=== PATIENT | female | born 1965 | race Caucasian/White ===

== ENCOUNTER 2016-11-19 14:22 | Inpatient (IN) | payer OTHER ==
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
--- NOTE | ~2016-11-19 | EEG ---
Electroencephalogram [facility] [id number] [place]. [address] NAME: JOSE TSAI : 65 STATUS : ADM IN PAT#: [id number] AGE: 51 ADM/REG DATE : 11/19/16 MR#: [id number] REPORT SERV DATE: 11/23/16 DICTATED BY: TAY BRYANT DATE: 11/23/16 REPORT STATUS : Draft TRANSCRIBED BY: MODL DATE: 11/23/16 ELECTROENCEPHALOGRAPHY REPORT. INTERPRETING PHYSICIAN: Tay Bryant MD REASON FOR EEG: Possible seizure on 11/19/2016. The patient appeared restless throughout the study, possible delirium tremens. A 23-surface electrodes, 10-20 international placement was used. The patient was noted to be restless and uncooperative throughout the study. Photic stimulation was performed. Video monitoring was utilized. The background activity consisted of moderate voltage, relatively well-organized eight cycles per second located in the posterior head regions, large amount of low voltage. Beta- range activity was noted scattered throughout. This may represent a medication effect. No paroxysmal or epileptiform activity was seen during this study. No significant asymmetry of cerebral activity was present. Eye blinking artifact was symmetrical. No photoconvulsive response was seen during photic stimulation. The patient's bus monitor showed sinus tachycardia, heart rate of approximately 110 beats per minute. IMPRESSION: MILDLY ABNORMAL EEG, CHARACTERIZED BY PRESENCE OF DIFFUSE SLIGHT SLOWING OF CEREBRAL ACTIVITY. NO PAROXYSMAL OR EPILEPTIFORM ACTIVITY WAS SEEN DURING THE STUDY. NO SIGNIFICANT ASYMMETRY OF ACTIVITY WAS PRESENT. THE PATIENT APPEARED RESTLESS AND UNCOOPERATIVE. CLINICAL CORRELATION IS RECOMMENDED. ERIS/TARSHA Tay Bryant MD / [id number] CC: Trina Corado IV, DO
--- NOTE | ~2016-11-19 | IDS ---
Interim Discharge Summary [facility] [address] [place]. [address] NAME: JOSE TSAI : 65 STATUS : ADM IN PAT#: [id number] AGE: 51 ADM/REG DATE : 11/19/16 MR#: [id number] REPORT SERV DATE: 11/23/16 DICTATED BY: JASEN LINDSAY IV DATE: 11/23/16 REPORT STATUS : Draft TRANSCRIBED BY: TARSHA DATE: 11/23/16 ADMISSION DATE: 11/19/2016 DISCHARGE DATE: DATE OF TRANSFER TO THE FLOOR: 11/23/2016 ADMITTING DIAGNOSES: 1. Alcohol withdrawal, initially with seizure, then with delirium. 2. Thrombocytopenia, felt to be secondary to marrow toxicity from the alcohol, improving. 3. WPW. 4. Hypertension, on Lopressor for hypersensitive state. 5. Electrolyte abnormalities, improved. 6. Depression. 7. Avascular necrosis of hip with scheduled surgery due on next week, on hold. 8. Metabolic acidosis likely secondary to seizure. 9. Cigarette use. PROCEDURES: The patient underwent EEG on the 11/20/2016 failing to demonstrate any seizure activity. CONSULTANTS: Neurology who continued to follow the patient. CURRENT MEDICATIONS: Ativan 1 mg q.6 hours scheduled, Colace 100 mg twice a day, Cymbalta 30 mg daily, Habitrol patch 21 mg daily, Lopressor 25 mg twice a day, Protonix 40 mg daily, multivitamin daily, and then thiamine 200 mg orally daily. HOSPITAL COURSE: The patient was admitted to the intensive care unit from the ER for which she was found to be unresponsive in the pretesting area for her hip surgery for next week. She appeared to be postictal and had a bite grayson on her tongue consistent with a seizure, though none was witnessed. She was treated with Precedex, Ativan p.r.n., and thiamine for presumed alcohol withdrawal with a previous history of significant alcohol use though the patient denied significant current use. She developed a marked delirium over the ensuing days requiring very high-dose Ativan as well as Precedex. Precedex has been off for 24 hours and the patient is much more oriented on lower doses of Ativan. The Case Management has evaluated the patient and will offer inpatient alcohol with cessation treatment when medically cleared. She had no further seizure activity and was not on any medications other than Ativan. She had an EEG performed demonstrating no seizure focus and was followed by Neurology though felt that this was secondary to alcohol withdrawal. She had significant thrombocytopenia with no cause found other than possible marrow suppression which I have discussed with Hematology. This did slowly rise. She has remained off heparin products and is on pneumatic compression stockings for DVT prophylaxis. If they do not continue to improve or drop further, she may require bone marrow biopsy. She has a known history of WPW without any dysrhythmias. She was placed on Lopressor because of elevated blood pressures in the hypersympathetic state. She had multiple electrolyte abnormalities, which were corrected. She was on Habitrol patch throughout the hospitalization for her tobacco dependency. It was felt that on the 11/23/2016 she was stable for transfer to the floor. Interim Discharge Summary [address] [place]. [address] NAME: JOSE TSAI : 65 STATUS : ADM IN [facility]#: [id number] AGE: 51 ADM/REG DATE : 11/19/16 MR#: [id number] REPORT SERV DATE: 11/23/16 DICTATED BY: JASEN LINDSAY IV DATE: 11/23/16 REPORT STATUS : Draft TRANSCRIBED BY: TARSHA DATE: 11/23/16 We will ask family members to watch her though she is now quite cooperative. This transfer may not occur on the 11/24/2016 though she will need further observation. Hospital Service will be asked to assume primary care. GLORIA/TARSHA Jasen Lindsay IV, M.D. / [id number] CC: Trina Corado IV, DO
--- NOTE | ~2016-11-19 | DS ---
Discharge Summary [facility] [address] [place]. [address] NAME: JOSE TSAI : 65 STATUS : DIS IN PAT#: [id number] AGE: 51 ADM/REG DATE : 11/19/16 MR#: [id number] REPORT SERV DATE: 11/26/16 DICTATED BY: ETTA PETERS DATE: 11/25/16 REPORT STATUS : Draft TRANSCRIBED BY: MODL DATE: 11/25/16 ADMISSION DATE: 11/19/2016 DISCHARGE DATE: 11/25/2016 Date of transfer from Intensive Care Unit to our [facility] floor is 11/24/2016. I picked up the patient on 11/25/2016 and is discharging the patient on the very day. CONDITION ON DISCHARGE: Stable. DISPOSITION: Discharged to home. ADVICE ON DISCHARGE: For patient to follow up with Dr. Noble for avascular necrosis of the left hip possibly arthroplasty within the next few weeks as scheduled. The patient will also follow up with her PCP regarding her anxiety and depression within the next one to two weeks. The patient has been advised to stop smoking and stop alcohol use, which patient agrees to do. DIAGNOSES ON DISCHARGE: Include the followin. Alcohol withdrawal seizures - the patient is not placed on any AEDs at this time per Neurology. The patient underwent an EEG which did not show any definitive seizure activity, hence the one time seizure that she may have had is probably related to alcohol withdrawal. The patient has promised to stop drinking. 2. Thrombocytopenia secondary to marrow toxicity from alcohol. 3. History of Jpfjd-Ayexdpdgo-Jewzd syndrome, which is stable. 4. Hypertension - stable. 5. Electrolyte abnormalities, which have completely resolved. 6. History of depression for which patient is on Cymbalta. 7. Anxiety for which the patient will be taking Ativan 0.5 mg p.o. twice a day p.r.n. and I have dispensed #5 pills and advised her to follow up with PCP so she can get outpatient help for this. 8. Tobacco abuse - patient has been advised to stop, and she agrees. BRIEF HOSPITAL COURSE: Please refer to interim discharge summary dictated by Dr. Aleksander Lindsay. Essentially, this patient was admitted to ICU because of alcohol withdrawal and see active seizures. Neurology was consulted, and the patient underwent an EEG which did not show any definitive seizure activity. Hence, it was deemed that this one time "seizure" was probably secondary to alcohol withdrawal, and the patient has not been placed on any AEDs at this time. The patient is being sent home on the following medications at this time: 1. Lopressor 25 mg p.o. twice a day. 2. Cymbalta to be resumed, and the patient takes 30 mg of this every day. 3. Ibuprofen 200 mg p.o. daily p.r.n. for pain. 4. The patient will resume all her vitamin and mineral supplements, potassium 20 mEq once a day. 5. Ativan 0.5 mg p.o. b.i.d. p.r.n. for anxiety #5 only has been given to patient. Discharge Summary [address] [address] NAME: JOSE TSAI : 65 STATUS : DIS IN PAT#: [id number] AGE: 51 ADM/REG DATE : 11/19/16 MR#: [id number] REPORT SERV DATE: 11/26/16 DICTATED BY: ETTA PETERS DATE: 11/25/16 REPORT STATUS : Draft TRANSCRIBED BY: TARSHA DATE: 11/25/16 Recent lab reports on this patient shows a CBC that shows a WBC of 5.8, hemoglobin 11.9, hematocrit of 35.1, and platelet count of 74. Blood cultures have come back with no growth at four days. Electrolyte profile shows completely normal electrolyte profile, BUN and creatinine, normal magnesium. The patient also at one time, underwent a C. diff test as she had some diarrhea but this was negative for C. diff. The patient's chest x-ray has come back with no acute cardiopulmonary abnormality. Her glucose was normal all the while and her urinalysis showed no evidence of any infection. The patient also underwent other tests including lactate level that came back normal and hepatic function screen that came back with slightly elevated alkaline phosphatase at 118 and slightly elevated AST at 100. ALT was 48. Her drug screen showed less than 10 alcohol level. The patient also had a brain CT scan without contrast that showed no acute infarct or hemorrhage and mild atrophy and chronic white matter gliosis probably from alcohol use. Hence, the patient is being discharged home in stable condition with above advice, and I have spent about 40 minutes in coordinating discharge care of this patient including face-to face encounter and summarizing this discharge. LORETA/TARSHA Etta Peters M.D. / [id number] CC: Trina Boswell DO
[2016-11-19 13:53] LABS: BE (BASE EXCESS) -17.7 MEQ/L (0 +/- 2.5); CARBOXYHEMOGLOBIN 2.3 % (0-3); HCO3 (ACTUAL BICARBONATE) 8.6 MEQ/L (23-27); HEMOBLOGIN CONTENT 12.7 G/DL (12-16); INSTRUMENT SERIAL # 8087; METHEMOGLOBIN 0.2 % (0-3); PCO2 (CO2 TENSION) 23 MMHG (35-45); PO2 (O2 TENSION) 109 MMHG (79-93); SAMPLE Arterial; pH 7.19 (7.37-7.43)
[2016-11-19 13:54] LABS: OPERATOR ID 32214
[~2016-11-19 14:22] MED LIST: ADVIL PO; ASABAYER PO; C5; CYMBALTA30 PO; IBU400 PO; KLOR-CON M2020 MEQ PO; LIPOTRIAD1 CAP PO; MOTRIN IB200 MG PO; MULTIPLE VIT PO; PCET PO; VITAMIN D31000 UNIT PO
[2016-11-19] MEDS ORDERED: BION TEARS OPH ×2 (14:33→14:44)
[2016-11-19 14:36] LABS: BASOPHILS 0.6 %; BASOPHILS ABSOLUTE 0.03 10/3/uL (0.0-0.16); EOSINOPHILS 0.6 %; EOSINOPHILS ABSOLUTE 0.03 10/3/uL (0.0-0.53); ER CBC TAT 0 Hrs 07 Mins; IMMATURE GRANULOCYTES 0.6 %; IMMATURE GRANULOCYTES ABSOLUTE 0.03 10/3/uL (0.0-0.11); LYMPHOCYTES 13.2 %; LYMPHOCYTES ABSOLUTE 0.71 10/3/uL (0.67-4.30); MEAN CORPUS HGB CONC 34.3 g/dL (32.0-36.0); MEAN CORPUSCULAR HEMOGLOB 34.3 pg (26.0-34.0); MEAN PLATELET VOLUME 12.7 fL (9.2-13.0); MONOCYTES 8.4 %; MONOCYTES ABSOLUTE 0.45 10/3/uL (0.21-1.20); NEUTROPHILS 76.6 %; NEUTROPHILS ABSOLUTE 4.11 10/3/uL (2.02-8.40); RBC DISTRIBUTION WIDTH 13.7 % (12.0-16.0); WHITE BLOOD CELLS 5.4 10/3/uL (4.5-10.5)
[2016-11-19 14:44] LABS: INTERNATIONAL NORMAL RATI 1.1 UNITS (-); PARTIAL THROMBO TIME 24.4 SEC (22.5-37.2); PROTIME (NOT ORD) 14.4 SEC (12.0-14.5)
[2016-11-19] MEDS ORDERED: CYMBALTA30 PO (14:44)
[2016-11-19] MEDS ORDERED: VITAMIN D2000 UNIT PO (14:44)
[2016-11-19] MEDS ORDERED: VITAMIN B PO (14:45)
[2016-11-19] MEDS ORDERED: GENPRIL200 MG PO (14:45)
[2016-11-19] MEDS ORDERED: CENTRUM PO (14:45)
[2016-11-19] MEDS ORDERED: KDUR20 PO (14:45)
[2016-11-19 14:51] LABS: ACETAMINOPHEN LEVEL (TYLENOL) < 2.0 MCG/ML (10.0-20.0); ALCOHOL < 10 MG/DL (0)
[2016-11-19 14:52] LABS: ALBUMIN 4.7 G/DL (3.5-5.0); DIRECT BILIRUBIN 0.2 MG/DL (0.0-0.4); INDIRECT BILIRUBIN(NOT ORDER) 0.4 MG/DL (0.1-0.9); TOTAL BILIRUBIN 0.6 MG/DL (0-1.2); TOTAL PROTEIN 8.1 G/DL (6.0-8.5)
[2016-11-19 14:55] LABS: MANUAL DIFF NO %; PLATELET COUNT 33 10/3/uL (150-400)
[2016-11-19 14:57] LABS: MACROCYTES 1+ (5-10/OIF) (0-5/OIF)
[2016-11-19 15:00] LABS: BUN (BLOOD UREA NITROGEN) 10 MG/DL (6-23); CALCIUM, SERUM 8.8 MG/DL (8.5-10.4); CHLORIDE, SERUM 101 MMOL/L (96-112); CPK 196 U/L (0-200); GFR AFRICAN AMERICAN 116 ML/MIN (>=60); GFR NON AFRICAN AMERICAN 100 ML/MIN (>=60); POTASSIUM, SERUM 3.8 MMOL/L (3.5-5.3); SODIUM, SERUM 135 MMOL/L (135-148)
[2016-11-19 15:01] LABS: CO2 (CARBON DIOXIDE) 15 MMOL/L (24-34); GLUCOSE, SERUM 180 MG/DL (60-99); TROPONIN I 0.06 NG/ML (<0.05)
[2016-11-19 15:02] LABS: CHEST PAIN PROFILE TAT 0 Hrs 30 Mins
[2016-11-19 19:22] LABS: BASOPHILS 0.3 %; BASOPHILS ABSOLUTE 0.02 10/3/uL (0.0-0.16); EOSINOPHILS 0.1 %; EOSINOPHILS ABSOLUTE 0.01 10/3/uL (0.0-0.53); HEMOGLOBIN 10.4 g/dL (12.0-16.0); IMMATURE GRANULOCYTES 0.1 %; IMMATURE GRANULOCYTES ABSOLUTE 0.01 10/3/uL (0.0-0.11); LYMPHOCYTES 17.5 %; LYMPHOCYTES ABSOLUTE 1.19 10/3/uL (0.67-4.30); MEAN CORPUS HGB CONC 34.8 g/dL (32.0-36.0); MEAN CORPUSCULAR HEMOGLOB 34.3 pg (26.0-34.0); MEAN CORPUSCULAR VOLUME 98.7 fL (80-100); MONOCYTES 10.3 %; NEUTROPHILS 71.7 %; NEUTROPHILS ABSOLUTE 4.86 10/3/uL (2.02-8.40); RBC DISTRIBUTION WIDTH 13.7 % (12.0-16.0); RED CELL COUNT 3.03 10/6/uL (4.0-5.6); WHITE BLOOD CELLS 6.8 10/3/uL (4.5-10.5)
[2016-11-19 19:23] LABS: PHOSPHORUS, SERUM 2.5 MG/DL (2.5-4.5); T4 (THYROXINE) TOTAL 4.1 MCG/DL (4.5-12.0)
[2016-11-19 19:23] LABS: HEMATOCRIT 29.9 % (36.0-48.0); PLATELET COUNT 35 10/3/uL (150-400)
[2016-11-19 19:24] LABS: MANUAL DIFF NO %
[2016-11-19 19:34] LABS: AMMONIA 32 UMOL/L (11-32)
[2016-11-19 19:40] LABS: BUN (BLOOD UREA NITROGEN) 8 MG/DL (6-23); CHLORIDE, SERUM 104 MMOL/L (96-112); CO2 (CARBON DIOXIDE) 27 MMOL/L (24-34); CREATININE 0.41 MG/DL (0.55-1.02); GFR AFRICAN AMERICAN 139 ML/MIN (>=60); GFR NON AFRICAN AMERICAN 120 ML/MIN (>=60); PHOSPHORUS, SERUM 2.6 MG/DL (2.5-4.5); POTASSIUM, SERUM 3.5 MMOL/L (3.5-5.3); SGOT(AST) 91 U/L (5-40); SGPT(ALT) 39 U/L (5-65); SODIUM, SERUM 135 MMOL/L (135-148); TOTAL PROTEIN 6.8 G/DL (6.0-8.5)
[2016-11-19 19:41] LABS: A/G RATIO 1.2 (0.7-1.9); ALBUMIN 3.7 G/DL (3.5-5.0); ALKALINE PHOSPHATASE 97 U/L (45-117); CPK 463 U/L (0-200); GLOBULIN 3.1 G/DL (2.5-4.1); GLUCOSE, SERUM 113 MG/DL (60-99); TOTAL BILIRUBIN 1.1 MG/DL (0-1.2); TROPONIN I 0.47 NG/ML (<0.05)
[2016-11-19 21:09] LABS: PROCALCITONIN <0.05 ng/mL (<0.5)
[2016-11-20 03:45] LABS: TROPONIN I 0.16 NG/ML (<0.05)
[2016-11-20 07:01] LABS: A/G RATIO 1.1 (0.7-1.9); ALBUMIN 3.6 G/DL (3.5-5.0); BUN (BLOOD UREA NITROGEN) 5 MG/DL (6-23); CALCIUM, SERUM 8.5 MG/DL (8.5-10.4); CHLORIDE, SERUM 103 MMOL/L (96-112); CO2 (CARBON DIOXIDE) 24 MMOL/L (24-34); CPK 440 U/L (0-200); CREATININE 0.41 MG/DL (0.55-1.02); GFR AFRICAN AMERICAN 139 ML/MIN (>=60); GFR NON AFRICAN AMERICAN 120 ML/MIN (>=60); GLOBULIN 3.4 G/DL (2.5-4.1); GLUCOSE, SERUM 127 MG/DL (60-99); POTASSIUM, SERUM 3.4 MMOL/L (3.5-5.3); SGOT(AST) 71 U/L (5-40); SGPT(ALT) 35 U/L (5-65); SODIUM, SERUM 138 MMOL/L (135-148); TOTAL BILIRUBIN 1.1 MG/DL (0-1.2)
[2016-11-20 07:03] LABS: ALKALINE PHOSPHATASE 117 U/L (45-117)
[2016-11-20 07:30] LABS: HEMOGLOBIN 11.9 g/dL (12.0-16.0); MEAN CORPUS HGB CONC 35.5 g/dL (32.0-36.0); MEAN CORPUSCULAR HEMOGLOB 34.9 pg (26.0-34.0); MEAN CORPUSCULAR VOLUME 98.2 fL (80-100); MEAN PLATELET VOLUME 10.4 fL (9.2-13.0); RBC DISTRIBUTION WIDTH 13.2 % (12.0-16.0); RED CELL COUNT 3.41 10/6/uL (4.0-5.6); WHITE BLOOD CELLS 4.8 10/3/uL (4.5-10.5)
[2016-11-20 07:35] LABS: HEMATOCRIT 33.5 % (36.0-48.0); MANUAL DIFF YES %; PLATELET COUNT 35 10/3/uL (150-400)
[2016-11-20 08:10] LABS: FREE T4 0.84 NG/DL (0.76-1.46)
[2016-11-20 08:17] LABS: BAND NEUTROPHILS 10 %; EOSINOPHILS 3 %; EOSINOPHILS ABSOLUTE (CALC) 0.14 10/3/uL (0.0-0.53); LYMPHOCYTES 24 %; LYMPHOCYTES ABSOLUTE (CALC) 1.15 10/3/uL (0.67-4.30); MONOCYTES 9 %; MONOCYTES ABSOLUTE (CALC) 0.43 10/3/uL (0.21-1.20); NEUTROPHILS ABSOLUTE (CALC) 3.07 10/3/uL (2.02-8.40); SEGMENTED NEUTROPHIL (0) 54 %; STOMATOCYTES 1+ (3-10/OIF) (0-2/OIF); TOTAL NUCLEATED CELLS 100
[2016-11-21 05:34] LABS: BUN (BLOOD UREA NITROGEN) 5 MG/DL (6-23); CALCIUM, SERUM 8.9 MG/DL (8.5-10.4); CHLORIDE, SERUM 99 MMOL/L (96-112); CO2 (CARBON DIOXIDE) 22 MMOL/L (24-34); CREATININE 0.35 MG/DL (0.55-1.02); GFR AFRICAN AMERICAN 146 ML/MIN (>=60); GFR NON AFRICAN AMERICAN 126 ML/MIN (>=60); GLUCOSE, SERUM 106 MG/DL (60-99); POTASSIUM, SERUM 3.1 MMOL/L (3.5-5.3); SODIUM, SERUM 135 MMOL/L (135-148)
[2016-11-21 05:40] LABS: BASOPHILS 0.2 %; BASOPHILS ABSOLUTE 0.01 10/3/uL (0.0-0.16); EOSINOPHILS 2.4 %; EOSINOPHILS ABSOLUTE 0.14 10/3/uL (0.0-0.53); HEMATOCRIT 33.9 % (36.0-48.0); HEMOGLOBIN 11.9 g/dL (12.0-16.0); IMMATURE GRANULOCYTES 0.3 %; IMMATURE GRANULOCYTES ABSOLUTE 0.02 10/3/uL (0.0-0.11); LYMPHOCYTES ABSOLUTE 1.19 10/3/uL (0.67-4.30); MEAN CORPUS HGB CONC 35.1 g/dL (32.0-36.0); MEAN CORPUSCULAR HEMOGLOB 34.6 pg (26.0-34.0); MEAN CORPUSCULAR VOLUME 98.5 fL (80-100); MEAN PLATELET VOLUME 11.3 fL (9.2-13.0); MONOCYTES 11.4 %; MONOCYTES ABSOLUTE 0.68 10/3/uL (0.21-1.20); NEUTROPHILS 65.7 %; NEUTROPHILS ABSOLUTE 3.91 10/3/uL (2.02-8.40); RBC DISTRIBUTION WIDTH 13.2 % (12.0-16.0); RED CELL COUNT 3.44 10/6/uL (4.0-5.6)
[2016-11-21 05:41] LABS: MANUAL DIFF NO %; PLATELET COUNT 37 10/3/uL (150-400)
[2016-11-21 06:19] LABS: RBC MORPHOLOGY NORM (NORMAL)
[2016-11-21 17:33] LABS: ASCORBIC ACID (UR NOT ORDER) NEG (NEG); BILIRUBIN, URINE NEGATIVE (NEG); ER URINALYSIS TAT 0 Hrs 14 Mins; KETONE, URINE 80 MG/DL (NEG); NITRITE (URINE) NEG (NEG); WBC (NOT ORDERED) (RFLEX) 2 (0-5)
[2016-11-21 17:37] LABS: LEUKOCYTE ESTERASE(NOT OR TRACE (NEG)
[2016-11-22 06:05] LABS: BASOPHILS 0.1 %; BASOPHILS ABSOLUTE 0.01 10/3/uL (0.0-0.16); EOSINOPHILS 2.1 %; EOSINOPHILS ABSOLUTE 0.15 10/3/uL (0.0-0.53); HEMATOCRIT 34.1 % (36.0-48.0); IMMATURE GRANULOCYTES 0.6 %; IMMATURE GRANULOCYTES ABSOLUTE 0.04 10/3/uL (0.0-0.11); LYMPHOCYTES 21.1 %; LYMPHOCYTES ABSOLUTE 1.51 10/3/uL (0.67-4.30); MEAN CORPUS HGB CONC 35.2 g/dL (32.0-36.0); MEAN CORPUSCULAR HEMOGLOB 35.1 pg (26.0-34.0); MEAN CORPUSCULAR VOLUME 99.7 fL (80-100); MEAN PLATELET VOLUME 10.7 fL (9.2-13.0); MONOCYTES 14.2 %; MONOCYTES ABSOLUTE 1.02 10/3/uL (0.21-1.20); NEUTROPHILS 61.9 %; NEUTROPHILS ABSOLUTE 4.43 10/3/uL (2.02-8.40); RBC DISTRIBUTION WIDTH 13.4 % (12.0-16.0); RED CELL COUNT 3.42 10/6/uL (4.0-5.6); WHITE BLOOD CELLS 7.2 10/3/uL (4.5-10.5)
[2016-11-22 06:12] LABS: PLATELET COUNT 46 10/3/uL (150-400)
[2016-11-22 06:13] LABS: MANUAL DIFF NO %
[2016-11-22 06:24] LABS: ALBUMIN 3.4 G/DL (3.5-5.0); ALKALINE PHOSPHATASE 112 U/L (45-117); BUN (BLOOD UREA NITROGEN) 5 MG/DL (6-23); CALCIUM, SERUM 8.9 MG/DL (8.5-10.4); CHLORIDE, SERUM 102 MMOL/L (96-112); CO2 (CARBON DIOXIDE) 26 MMOL/L (24-34); CREATININE 0.39 MG/DL (0.55-1.02); GFR AFRICAN AMERICAN 141 ML/MIN (>=60); GFR NON AFRICAN AMERICAN 122 ML/MIN (>=60); GLOBULIN 3.5 G/DL (2.5-4.1); PHOSPHORUS, SERUM 3.3 MG/DL (2.5-4.5); POTASSIUM, SERUM 3.5 MMOL/L (3.5-5.3); SGOT(AST) 41 U/L (5-40); SGPT(ALT) 31 U/L (5-65); SODIUM, SERUM 139 MMOL/L (135-148); TOTAL BILIRUBIN 0.9 MG/DL (0-1.2); TOTAL PROTEIN 6.9 G/DL (6.0-8.5)
[2016-11-22 06:26] LABS: GLUCOSE, SERUM 77 MG/DL (60-99)
[2016-11-22 06:39] LABS: RBC MORPHOLOGY NORM (NORMAL)
[2016-11-23 04:13] LABS: BASOPHILS 0.2 %; BASOPHILS ABSOLUTE 0.01 10/3/uL (0.0-0.16); EOSINOPHILS 2.4 %; EOSINOPHILS ABSOLUTE 0.13 10/3/uL (0.0-0.53); HEMATOCRIT 31.4 % (36.0-48.0); IMMATURE GRANULOCYTES 0.4 %; IMMATURE GRANULOCYTES ABSOLUTE 0.02 10/3/uL (0.0-0.11); LYMPHOCYTES 30.2 %; LYMPHOCYTES ABSOLUTE 1.63 10/3/uL (0.67-4.30); MEAN PLATELET VOLUME 10.1 fL (9.2-13.0); MONOCYTES 17.1 %; MONOCYTES ABSOLUTE 0.92 10/3/uL (0.21-1.20); NEUTROPHILS 49.7 %; NEUTROPHILS ABSOLUTE 2.68 10/3/uL (2.02-8.40); PLATELET COUNT 52 10/3/uL (150-400); RBC DISTRIBUTION WIDTH 13.4 % (12.0-16.0); RED CELL COUNT 3.14 10/6/uL (4.0-5.6); WHITE BLOOD CELLS 5.4 10/3/uL (4.5-10.5)
[2016-11-23 04:15] LABS: MANUAL DIFF NO %
[2016-11-23 04:42] LABS: ALBUMIN 2.8 G/DL (3.5-5.0); CALCIUM, SERUM 8.5 MG/DL (8.5-10.4); CHLORIDE, SERUM 107 MMOL/L (96-112); CO2 (CARBON DIOXIDE) 26 MMOL/L (24-34); CREATININE 0.42 MG/DL (0.55-1.02); GFR AFRICAN AMERICAN 138 ML/MIN (>=60); GFR NON AFRICAN AMERICAN 119 ML/MIN (>=60); PHOSPHORUS, SERUM 3.2 MG/DL (2.5-4.5); POTASSIUM, SERUM 3.6 MMOL/L (3.5-5.3); SODIUM, SERUM 141 MMOL/L (135-148)
[2016-11-23 04:46] LABS: MACROCYTES 1+ (5-10/OIF) (0-5/OIF); PLATELET ESTIMATE DEC (ADEQUATE); RBC MORPHOLOGY ABN (NORMAL)
[2016-11-23 04:48] LABS: BUN (BLOOD UREA NITROGEN) 9 MG/DL (6-23); GLUCOSE, SERUM 122 MG/DL (60-99)
[2016-11-23 11:18] LABS: FOLATE 22.1 NG/ML (>5.2)
[2016-11-24 06:11] LABS: BASOPHILS 0.3 %; BASOPHILS ABSOLUTE 0.02 10/3/uL (0.0-0.16); EOSINOPHILS 2.4 %; EOSINOPHILS ABSOLUTE 0.14 10/3/uL (0.0-0.53); HEMOGLOBIN 11.9 g/dL (12.0-16.0); IMMATURE GRANULOCYTES 0.5 %; IMMATURE GRANULOCYTES ABSOLUTE 0.03 10/3/uL (0.0-0.11); LYMPHOCYTES 33.4 %; LYMPHOCYTES ABSOLUTE 1.93 10/3/uL (0.67-4.30); MEAN CORPUS HGB CONC 33.9 g/dL (32.0-36.0); MEAN CORPUSCULAR HEMOGLOB 34.4 pg (26.0-34.0); MEAN CORPUSCULAR VOLUME 101.4 fL (80-100); MEAN PLATELET VOLUME 9.9 fL (9.2-13.0); MONOCYTES 18.9 %; MONOCYTES ABSOLUTE 1.09 10/3/uL (0.21-1.20); NEUTROPHILS 44.5 %; NEUTROPHILS ABSOLUTE 2.56 10/3/uL (2.02-8.40); RBC DISTRIBUTION WIDTH 13.1 % (12.0-16.0); RED CELL COUNT 3.46 10/6/uL (4.0-5.6); WHITE BLOOD CELLS 5.8 10/3/uL (4.5-10.5)
[2016-11-24 06:12] LABS: HEMATOCRIT 35.1 % (36.0-48.0); MANUAL DIFF NO %; PLATELET COUNT 74 10/3/uL (150-400)
[2016-11-24 06:22] LABS: BUN (BLOOD UREA NITROGEN) 6 MG/DL (6-23); CALCIUM, SERUM 9.4 MG/DL (8.5-10.4); CHLORIDE, SERUM 106 MMOL/L (96-112); CO2 (CARBON DIOXIDE) 27 MMOL/L (24-34); CREATININE 0.46 MG/DL (0.55-1.02); GFR AFRICAN AMERICAN 133 ML/MIN (>=60); GFR NON AFRICAN AMERICAN 115 ML/MIN (>=60); GLUCOSE, SERUM 99 MG/DL (60-99); POTASSIUM, SERUM 3.8 MMOL/L (3.5-5.3); SODIUM, SERUM 141 MMOL/L (135-148)
[2016-11-24 07:31] LABS: PLATELET ESTIMATE DEC (ADEQUATE)
[2016-11-24 07:32] LABS: MACROCYTES 1+ (5-10/OIF) (0-5/OIF)
[2016-11-25] MEDS ORDERED: ATV.5 PO (14:06)
[2016-11-25] MEDS ORDERED: LOP25 PO (14:07)
== END 2016-11-25 14:45 | disposition home or self-care (01) | DRG 897 ==
LOC: ER 14:22 → MIC 15:49 → 6NO 11-24 14:05
PROVIDERS: Emergency Medicine; Internal Medicine Critical Care Medicine
PROC: HZ2ZZZZ Detoxification Services for Substance Abuse Treatment (ICD-10-PCS; principal; 2016-11-19)
DX: F10.231 Alcohol dependence with withdrawal delirium (principal); E87.2 Acidosis; D69.59 Other secondary thrombocytopenia; M87.9 Osteonecrosis, unspecified; G31.2 Degeneration of nervous system due to alcohol; G40.89 Other seizures; M87.852 Other osteonecrosis, left femur; T51.0X1A Toxic effect of ethanol, accidental (unintentional), initial encounter; I45.6 Pre-excitation syndrome; F17.210 Nicotine dependence, cigarettes, uncomplicated; F32.9 Major depressive disorder, single episode, unspecified; Y90.0 Blood alcohol level of less than 20 mg/100 ml; F41.9 Anxiety disorder, unspecified; I10 Essential (primary) hypertension; Z96.641 Presence of right artificial hip joint; Z80.3 Family history of malignant neoplasm of breast; Z82.49 Family history of ischemic heart disease and other diseases of the circulatory system
CPT/HCPCS: 36600; 70450; 71010; 80048; 80053; 80069; 80076; 80307; 81001; 82140; 82550; 82607; 82746; 82805; 82962; 83036; 83605; 83735; 83930; 84100; 84145; 84436; 84439; 84443; 84484; 85025; 85049; 85610; 85730; 87040; 87493; 87493-59; 87641; 93005; 95816; 96374; 96376; 99291; A9270-GY; C9113; J0360; J1170; J3360; J3411; J3475